=== PATIENT | male | born 1950 | race Caucasian/White ===

== ENCOUNTER 2025-04-24 01:29 | Emergency (ER) | payer BC, SELFPAY ==
[2025-04-24] VITALS (15 sets, daily range): BP systolic 77–204; BP diastolic 49–113; PULSE 66–68
--- NOTE | 2025-04-24 01:45 | ED.GENMED ---
History of Present Illness
General
Chief Complaint: Blood Pressure Problem
Source: patient
Exam Limitations: none
Time Seen by Provider: 04/24/25 01:37
History of Present Illness
History of Present Illness:
See MDM
Past History
Past History
ED Past Medical History: HTN and Hypothyroidism
ED Past Surgical History: None
Social History
Tobacco: Non-smoker
Alcohol: None
Phy Exam
Physical Exam
Physical Exam:
See MDM
Course
Orders/Labs/Results
Orders:
Orders
04/24/25 01:45
Electrocardiogram (*1) Urgent
Reason for Study: Hypertension, Benign
EKG- Treatment ONCE
HydrALAZINE [Apresoline] 10 mg IV NOW STA
04/24/25 01:52
Complete Blood Count/With Diff Urgent
04/24/25 02:13
Comprehensive Metabolic Panel Urgent
Comment: REDRAW
Troponin I Urgent
Comment: REDRAW
04/24/25 02:50
0.9% Sodium Chloride 1000 ml [Nss] 1,000 ml IV BOLUS
Abnormal Lab Results
04/24/25 04/24/25
01:52 02:13
Absolute Monos (auto) 0.7 H 10^3/uL
(0.1-0.6)
Eosinophils % 6.4 H %
(0-6)
Chloride 111 H mmol/L
(98-107)
BUN 24 H mg/dl
(9-20)
Glucose 106 H mg/dl
(70-99)
Total Bilirubin 2.1 H mg/dl
(0.2-1.3)
04/24/25 01:52
04/24/25 02:13
Vital Signs
Initial and Last Documented VS:
Initial Vital Signs
Temp Pulse Resp BP Pulse Ox
97.7 F 67 18 196/113 100
04/24/25 01:32 04/24/25 01:32 04/24/25 01:32 04/24/25 01:32 04/24/25 01:32
Last Documented Vital Signs
Temp Pulse Resp BP Pulse Ox
97.7 F 50 11 86/57 97
04/24/25 01:32 04/24/25 02:47 04/24/25 02:47 04/24/25 02:47 04/24/25 02:47
MDM/Problems Addressed
Differential Diagnosis Includes:
Note:
CHIEF COMPLAINT(S)
Elevated blood pressure.
HISTORY OF PRESENT ILLNESS
The patient is a 75-year-old male who presents with a complaint of elevated blood pressure. He reports feeling the sensation of high blood pressure in his ears. The patient monitors his blood pressure periodically, with occasional reports of
elevated levels, notably when he senses it is elevated. He is currently on Carvedilol 6.25 mg twice daily and Losartan 50 mg at night for blood pressure management. The patient took an extra dose of Carvedilol tonight due to high readings. There are
no reported symptoms such as chest pain, although he has a history of a heart attack which previously presented with sweating and headaches. The patient reports no significant lifestyle changes, including no alterations in diet or physical activity,
and denies initiating smoking.
MEDICATIONS
- Carvedilol 6.25 mg twice daily.
- Losartan 50 mg nightly.
PHYSICAL EXAM
General: Alert, no acute distress.
Skin: Warm, dry.
Head: Normocephalic, atraumatic
Neck: Appears supple, trachea midline.
Eyes, Ears, Nose, Mouth, and Throat: Oral mucosa moist. Pupils equal reactive. Regular rate and rhythm
Cardiovascular: No signs of cyanosis
Respiratory: Respirations are non-labored.
Abdomen: Non-distended
Musculoskeletal: No deformities
Neurological: No focal neurological deficit observed.
Psychiatric: Cooperative, appropriate mood and affect.
PLAN
Perform laboratory tests to assess for end-organ damage due to elevated blood pressure. Administer hydralazine via intravenous to acutely lower blood pressure. If the medication is well-tolerated, provide oral medication for as-needed use to manage
elevated levels during the day. Consider titration of Carvedilol dosage. Patient discharge contingent upon stabilization of blood pressure and normal laboratory results.
DIFFERENTIAL DIAGNOSIS
The Differential Diagnosis includes, in no particular order and is not limited to:
1. Essential Hypertension
2. Hypertensive Urgency
3. Hypertensive Emergency
4. Secondary Hypertension
5. Anxiety-related Hypertension
6. White Coat Hypertension
7. Cardiac Arrhythmia-induced Hypertension
8. Medication noncompliance or interaction
9. Renal Artery Stenosis
10. Primary Hyperaldosteronism
SUMMARY OF ENCOUNTER
The patient, a 75-year-old male, presented with elevated blood pressure and a sensation of high pressure in his ears. He has a history of hypertension, previously managed with Carvedilol and Losartan. There was no evidence of end-organ damage on
blood work. The patient reports no other symptoms indicative of acute cardiovascular issues. The plan involved acute management of hypertension and discussion of medication adjustments.
DISPOSITION
Discharge
ASSESSMENT
The patient presented with elevated blood pressure, likely due to essential hypertension. There was no evidence of acute complications such as end-organ damage.
PLAN
The patient was prescribed hydralazine as a PRN medication for elevated blood pressure until he can follow up with his primary care provider. An increase in Carvedilol dose was discussed. The patient was advised on return precautions and the
importance of follow-up with his primary physician.
PATIENT EDUCATION AND COUNSELING
The patient was informed about the signs and symptoms that would necessitate a return to the emergency department, such as chest pain, shortness of breath, or other concerning symptoms. Counseling regarding the significance of medication adherence
and lifestyle modifications was provided.
FOLLOW-UP INSTRUCTIONS
The patient was instructed to follow up with his primary care provider to re-evaluate his blood pressure management and assess the need for any further medication adjustments.
MEDICATION RECONCILIATION
- Hydralazine prescribed as needed for elevated blood pressure.
- Ongoing medications include Carvedilol 6.25 mg twice daily and Losartan 50 mg nightly.
MEDICAL DECISION MAKING
1. Number and Complexity of Problems Addressed: Chronic conditions affecting care, including essential hypertension.
2. Data:
- Tests and documents included review of laboratory results which showed no end-organ damage.
- My independent interpretation of EKG showed sinus rhythm with a first-degree AV block, confirming no acute cardiac abnormalities.
3. Risk:
Prescription medication was prescribed (hydralazine) and adjustments to current medications (Carvedilol) were considered.
DIAGNOSIS
- Essential Hypertension (I10)
*Pulse Oximetry
SaO2: 100
Oxygen Mode of Delivery: Room air
Patient hypoxic: no
*Critical Care Note
Total Time (30-74mins, 75-104mins- exclusive of procedures): Not Applicable
ED Attending Note
-
Portions of this chart may have been created with voice recognition software.� Occasional wrong word or��sound alike� substitutions may have occurred due to the inherent limitations of voice recognition software.
Discharge Plan
Departure
Patient Disposition: Home (Routine Discharge)
Date of Disposition: 04/24/25
Time of Disposition: 02:36
Patient with high blood pressure during this ER visit?: Yes
Discharge Problem:
Benign essential HTN
Instructions: High Blood Pressure (DC), BLOOD PRESSURE
Prescriptions:
New
hydralazine 25 mg tablet
25 mg PO ONCE Qty: 10 0RF
Activity Restrictions/Additional Instructions:
Please return for any worsening symptoms.
You may return at any time if you have further concerns.
Please follow up with your doctor at the first available appointment, preferably this week.
Starting tomorrow, please increase your carvedilol dosing to 12.5 mg twice a day.
If your blood pressure is greater than 160/90 during midday, please take a dose of the hydralazine. Please take this as an as needed medication until you and your doctor can reassess your blood pressure.
Thank you for choosing [facility].
Interventions
Interventions:
*Risk Screen - Suicide Last Done: 04/24/25 01:32
*General Assessment Last Done: 04/24/25 01:32
*Neglect/Abuse Screening Last Done: 04/24/25 01:37
*ED- Fall Risk Assessment Last Done: 04/24/25 01:40
*ED COVID-19 Vaccine History Last Done: 04/24/25 01:37
ED- Cardiac Assessment Last Done: 04/24/25 01:40
ED- Neurological Assessment Last Done: 04/24/25 01:40
ED- Pulmonary Assessment Last Done: 04/24/25 01:40
Discharge Date and Time
Print Language: LAO
[2025-04-24] MEDS: APRESOLINE 10 MG IV (01:54)
[2025-04-24 02:09] LABS: Hematocrit 40.2 % (39.0-52.0); Hemoglobin 14.3 g/dL (13.0-18.0); Mean Corp Hgb Conc. 35.6 g/dL (33.0-37.0); Mean Corpuscular Volume 85.0 fL (80.0-94.0); Nucleated Red Blood Cells % 0 % (-); Red Cell Dist. Width 12.6 % (11.5-14.5)
[2025-04-24 02:45] LABS: ALT (SGPT) 24 U/L (0-50); AST (SGOT) 29 U/L (17-59); Albumin 4.5 g/dl (3.5-5.0); Alkaline Phosphatase 39 U/L (38-126); Blood Urea Nitrogen 24 mg/dl (9-20); Calcium 8.8 mg/dl (8.4-10.2); Carbon Dioxide 23 mmol/L (22-30); Chloride 111 mmol/L (98-107); Glucose 106 mg/dl (70-99); Potassium 3.9 mmol/L (3.5-5.1); Sodium 140 mmol/L (135-145); Total Protein 6.8 g/dl (6.3-8.2); eGFR > 60.00
[2025-04-24] MEDS: NSS 1000 IV (02:50)
[2025-04-24 02:56] LABS: Troponin I < 0.012 ng/ml
[2025-04-24 03:18] LABS: Platelet Count 157 10^3/uL (130-400)
== END 2025-04-24 04:13 | disposition home or self-care (01) ==
LOC: EMR 01:29
PROVIDERS: EMERGENCY PHYSICIAN Student in an Organized Health Care Education/Training Program
DX: I10 Essential (primary) hypertension (principal); E03.9 Hypothyroidism, unspecified; I25.2 Old myocardial infarction; Z79.899 Other long term (current) drug therapy
CPT/HCPCS: 99284; 96374; 96361; 80053; 84484; 85025; 93005